=== PATIENT | female | born 1955 | race Two or more races ===

== ENCOUNTER 2018-02-17 01:26 | Inpatient (IN) | payer BC ==
[~2018-02-17] VITALS: Ht 167.6 cm; Wt 68.0 kg
--- NOTE | 2018-02-17 01:38 | NUR ---
Dr. Cui at bedside for MSE.
[2018-02-17] MEDS ORDERED: OXYCODONE/APAP 5-325 MG TABLET PO ONE ×2 (02:00→05:00)
--- NOTE | 2018-02-17 02:00 | NUR ---
Patient comes into the ER s/o fall and roll x 14 stairs after developing weakness to her LLE. Incident occured 1 hour FOOD TASTER. Patient states she has history of sciatica. Patient endorses a similar incident occuring yesterday @ 2100. Patient is not on blood thinners, No LOC occured during the episode of fall. Arrival Time: 0125 MD at bedside: 014 Code Stroke Activation: 0144 @0144 Initial HINSS: 0 , Swallow Screen cleared, no neuro deficits upon arrival to ER. Nursing Coin Dealer: [id number] Art Director Arrival: 0151 EKG completion: [address] gurney accompanied by primary RN/Transporter : 0200 Per ER MD, no need to contact tele neurology. Patient last known well time was 1 hour FOOD TASTER (0025), Labs drawn by vocal artist @ 0159.
--- NOTE | 2018-02-17 02:24 | NUR ---
ER MD on phone with Radiology MD , Code Stroke cleared at this time. No acute stroke is noted per Radiology MD.
[2018-02-17 02:35] LABS: BILIRUBIN,DIRECT 0.1 mg/dL (0.0-0.2); BILIRUBIN,TOTAL 0.2 mg/dL (0.2-1.0); CREATININE 1.3 mg/dL (0.6-1.3); POTASSIUM 3.4 mmol/L (3.5-5.1)
--- NOTE | 2018-02-17 02:39 | NUR ---
Patients CT completed @ 0220. Patient remained in imaging for completion of Xrays.Tolerated well by the patient.
[2018-02-17] MEDS ORDERED: ASPIRIN 81 MG TAB.CHEW PO ONE (02:45)
--- NOTE | 2018-02-17 02:45 | NUR ---
Pt in bed, tolerated PO well, no acute signs of distress.
[2018-02-17] MEDS ORDERED: OXYCODONE/APAP 5-325 MG TABLET ONE ×2 (02:46→04:53)
[2018-02-17] MEDS ORDERED: ASPIRIN 81 MG TAB.CHEW ONE (02:47)
[2018-02-17 03:19] LABS: BASOPHILS # (AUTO) 0.1 K/uL (0.0-8.0); BASOPHILS % (AUTO) 0.5 % (0.0-2.0); EOSINOPHILS # (AUTO) 0.2 K/uL (0.0-0.7); HEMATOCRIT 38.5 % (31.2-41.9); HEMOGLOBIN 13.3 g/dL (10.9-14.3); LYMPHOCYTES # (AUTO) 0.9 K/uL (20.0-40.0); LYMPHOCYTES % (AUTO) 8.1 % (20.5-51.5); MEAN CORPUSCULAR HEMOGLOBIN 30.8 uug (24.7-32.8); MEAN CORPUSCULAR HGB CONC 35 g/dL (32.3-35.6); MEAN CORPUSCULAR VOLUME 89.1 fL (75.5-95.3); MONOCYTES # (AUTO) 0.5 K/uL (2.0-10.0); MONOCYTES % (AUTO) 5.1 % (0.0-11.0); NEUTROPHILS # (AUTO) 8.9 K/uL (1.8-8.9); NEUTROPHILS % (AUTO) 84.3 % (38.5-71.5); PLATELET COUNT (AUTO) 230 K/uL (179-408); RED BLOOD CELL COUNT(AUTO) 4.32 MIL/uL (3.63-4.92); WHITE BLOOD COUNT (AUTO) 10.5 K/uL (3.8-11.8)
--- NOTE | 2018-02-17 03:37 | NUR ---
PAGED EPIC FOR PANEL CALL - AWAITING CALL BACK, ATTEMPT 1.
--- NOTE | 2018-02-17 04:29 | NUR ---
PAGED EPIC FOR PANEL CALL. AWAITING CALL-BACK FROM DR. DIAZ AND/OR HILARIO JACKSON DNP. 3RD ATTEMPT.
--- NOTE | 2018-02-17 04:49 | NUR ---
Report given to Rhona FLOREZ on Telemetry . Pt. admitted to telemetry , under care of Dr. Ram. Dx: TIA Belongs List completed
[2018-02-17 05:10] VITALS: BP 111/56
[2018-02-17] MEDS ORDERED: LEVO75TA7 PO (05:49)
[2018-02-17] MEDS ORDERED: OLME1TAB50 PO (06:33)
[2018-02-17] MEDS ORDERED: LANS30CA54 PO (06:33)
[2018-02-17] MEDS ORDERED: POTASSIUM CHLORIDE 20 MEQ in IV 1/2NS 1000 ML 1,000 ML IV PRN (06:45)
[2018-02-17] MEDS ORDERED: ACETAMINOPHEN 325 MG TABLET PO PRN (06:45)
[2018-02-17] MEDS ORDERED: ZOLPIDEM 5 MG TABLET PO PRN (06:45)
[2018-02-17] MEDS ORDERED: ONDANSETRON 4 MG/2 ML VIAL IV PRN (06:45)
[2018-02-17] MEDS: PANTOPRAZOLE SODIUM 40 MG TABLET.DR PO SCH (07:15)
--- NOTE | 2018-02-17 07:19 | NUR ---
PATIENT ADMITTED FOR LEFT LEG WEAKNESS, S/P FALL. SHES AAOX4 DENIES PAIN OR ANY DISTRESS AT PRESENT. SAFETY MEASURES IN PLACE, CALL LIGHT LEFT WITHIN PATIENT'S REACH
[2018-02-17] MEDS ORDERED: LEVOTHYROXINE SODIUM 75 MCG TABLET PO SCH (07:30)
[2018-02-17] MEDS: ASPIRIN EC 81 MG TABLET.DR PO SCH (08:56)
[2018-02-17] MEDS ORDERED: OLME1TAB52 PO (08:57)
[2018-02-17] MEDS ORDERED: MONT10TA25 PO (08:57)
[2018-02-17] MEDS ORDERED: zyrtec (08:57)
[2018-02-17] MEDS ORDERED: LEVO88TA2 PO (08:57)
[2018-02-17] MEDS ORDERED: TOPI100T38 PO (08:57)
[2018-02-17] MEDS ORDERED: POTA20TA83 PO (08:57)
[2018-02-17] MEDS ORDERED: SIMV20TA6 PO (08:57)
[2018-02-17] MEDS ORDERED: POTASSIUM CHLORIDE 10 MEQ TAB.PRT.SR PO ONE (09:15)
[2018-02-17] MEDS: IV NS 1000 ML 1,000 ML IV PRN ×2 (10:04→19:57)
[2018-02-17] MEDS: HYDROCODONE/APAP 5-325MG TABLET PO PRN ×2 (10:36→19:09)
[2018-02-17] MEDS ORDERED: MISCELLANEOUS MED XX PRN (11:00)
[2018-02-17 11:23] VITALS: BP 118/66
[2018-02-17 11:43] LABS: *BILIRUBIN,URIN NEGATIVE (NEGATIVE); *BLOOD, URINE NEGATIVE (NEGATIVE); *CLARITY,URINE CLEAR (CLEAR); *COLOR,URINE YELLOW (YELLOW); *KETONES,URINE NEGATIVE (NEGATIVE); *PROTEIN,URINE NEGATIVE (NEGATIVE); *UROBILINOGEN,URINE 0.2 E.U./dl (NORMAL); LEUKOCYTE ESTERASE ,URINE NEGATIVE (NEGATIVE); NITRITE, URINE NEGATIVE (NEGATIVE); UGLUCOSE NEGATIVE (NEGATIVE)
[2018-02-17 11:48] LABS: RBC,URINE 0-3 /HPF (0-3)
[2018-02-17 11:49] LABS: BACTERIA,URINE NONE SEEN /HPF (NONE SEEN)
[2018-02-17 11:50] LABS: MUCUS,URINE FEW /LPF (0-FEW); SQUAMOUS EPITHELIAL CELL,UR FEW /HPF (NONE SEEN); TRANSITIONAL EPI CELLS,URINE FEW /LPF (NONE SEEN)
[2018-02-17 15:15] VITALS: BP 112/66
[2018-02-17] MEDS ORDERED: PRAV10TA40 PO (15:25)
--- NOTE | 2018-02-17 19:20 | NUR ---
RECEIVED PT LYING IN BED. HAS NO SIGNS OF ACUTE DISTRESS. HAS NO COMPLAINTS OF PAIN OR SOB. IV LINE ON THE RIGHT AC, INTACT AND PATENT. SAFETY AND COMFORT MEASURES INITIATED. CALL LIGHT WITHIN REACH. WILL CONTINUE TO MONITOR.
[2018-02-17 20:04] VITALS: BP 133/69
[2018-02-17] MEDS ORDERED: ATORVASTATIN 40 MG TABLET PO SCH (21:00)
[2018-02-17] MEDS ORDERED: SIMVASTATIN 20 MG TABLET PO SCH (21:00)
[2018-02-17] MEDS ORDERED: ENOXAPARIN SODIUM 40 MG/0.4 ML DISP.SYRIN SQ SCH (21:00)
[2018-02-17] MEDS ORDERED: EZETIMIBE 10 MG TABLET PO SCH (21:00)
[2018-02-17] MEDS ORDERED: ATORVASTATIN 10 MG TABLET PO SCH (21:00)
[2018-02-17] MEDS ORDERED: DOCUSATE SODIUM 100 MG CAPSULE PO SCH (21:00)
[2018-02-17] MEDS ORDERED: TOPIRAMATE 100 MG TABLET PO SCH (21:00)
[2018-02-18 00:21] VITALS: BP 115/68
[2018-02-18 04:49] VITALS: BP 121/64
[2018-02-18] MEDS: PANTOPRAZOLE SODIUM 40 MG TABLET.DR PO SCH (06:01)
[2018-02-18] MEDS: HYDROCODONE/APAP 5-325MG TABLET PO PRN ×2 (06:02→14:10)
[2018-02-18] MEDS: IV NS 1000 ML 1,000 ML IV PRN (06:14)
--- NOTE | 2018-02-18 06:25 | NUR ---
PT SLEPT THROUGHOUT THE SHIFT. PT SHOWS NO SIGNS OF ACUTE DISTRESS. PT AFEBRILE. VITAL SIGNS WITHIN NORMAL LIMIT. NORCO GIVEN FOR THE PT FOR PAIN. PRESCRIBED MEDICATION GIVEN AND PT TOLERATED IT WELL. SAFETY AND COMFORT PROVIDED. WILL ENDORSE ACCORDINGLY TO INCOMING NURSE FOR CONTINUITY OF CARE.
[2018-02-18 06:39] LABS: BILIRUBIN,TOTAL 0.4 mg/dL (0.2-1.0); MAGNESIUM 2.1 mg/dL (1.8-2.4); PHOSPHOROUS 2.4 mg/dL (2.5-4.9); POTASSIUM 3.4 mmol/L (3.5-5.1); TOTAL PROTEIN, SERUM 6.4 g/dL (6.4-8.2)
[2018-02-18] MEDS ORDERED: LEVOTHYROXINE SODIUM 88 MCG TABLET PO SCH (07:00)
[2018-02-18 07:05] LABS: EOSINOPHILS # (AUTO) 0.3 K/uL (0.0-0.7); MONOCYTES # (AUTO) 0.4 K/uL (2.0-10.0); RED BLOOD CELL COUNT(AUTO) 3.77 MIL/uL (3.63-4.92)
[2018-02-18 07:18] LABS: BASOPHILS % (AUTO) 0.8 % (0.0-2.0); EOSINOPHILS % (AUTO) 4.9 % (0.0-7.0); LYMPHOCYTES # (AUTO) 1.4 K/uL (20.0-40.0); LYMPHOCYTES % (AUTO) 23.8 % (20.5-51.5); MEAN CORPUSCULAR HEMOGLOBIN 30.6 uug (24.7-32.8); MEAN CORPUSCULAR HGB CONC 34 g/dL (32.3-35.6); MEAN CORPUSCULAR VOLUME 89.8 fL (75.5-95.3); MONOCYTES % (AUTO) 7.2 % (0.0-11.0); NEUTROPHILS # (AUTO) 3.6 K/uL (1.8-8.9); NEUTROPHILS % (AUTO) 63.3 % (38.5-71.5); PLATELET COUNT (AUTO) 217 K/uL (179-408)
[2018-02-18 07:21] LABS: HEMATOCRIT 33.9 % (31.2-41.9); HEMOGLOBIN 11.5 g/dL (10.9-14.3); WHITE BLOOD COUNT (AUTO) 5.7 K/uL (3.8-11.8)
--- NOTE | 2018-02-18 07:35 | NUR ---
Received patient awake in bed, not any form of distress. Alert and oriented x 4, ambulates with assist. With IV access at right antecubital vein to normal saline infusing at 100ml/hr. Per evening or night nurse supervisor, patient complains of back pain, monitored for recurrence of back pain. Bed in low position, side rails up x 2, call light within reach. Will continue to monitor.
--- NOTE | 2018-02-18 08:30 | NUR ---
Patient refusing to take Losartan and Hydrochlorothiazide medication, states these medications do not help her and she wants to continue the blood pressure medication she has been taking at home which her is bringing. Discussed with Dr. Arias who said patient can continue taking blood pressure medication she was taking at home. Home medication - Benicar HCT taken to pharmacy and ordered.
[2018-02-18] MEDS: HYDROCHLOROTHIAZIDE 12.5 MG CAPSULE PO SCH ×2 (08:44→08:50)
[2018-02-18] MEDS: ASPIRIN EC 81 MG TABLET.DR PO SCH (08:44)
[2018-02-18] MEDS: LOSARTAN POTASSIUM 50 MG TABLET PO SCH ×2 (08:44→08:50)
[2018-02-18] MEDS ORDERED: POTASSIUM CHLORIDE 20 MEQ TAB.PRT.SR PO SCH ×2 (09:00)
[2018-02-18] MEDS ORDERED: MONTELUKAST SODIUM 10 MG TABLET PO SCH (09:00)
--- NOTE | 2018-02-18 09:00 | NUR ---
Patient requesting for a pain patch, discussed with Dr. Arias. per MD we can order Lidocaine patch for patient's back pain - noted and ordered.
[2018-02-18] MEDS ORDERED: LIDOCAINE 5% PATCH TD SCH (09:30)
[2018-02-18] MEDS ORDERED: PATIENT MAY USE OWN MED- MD OK PO SCH (10:15)
[2018-02-18] MEDS ORDERED: HYDROCHLOROTHIAZIDE PO SCH (10:45)
[2018-02-18] MEDS ORDERED: OLMESARTAN PO SCH (10:45)
[2018-02-18] MEDS ORDERED: [UNRECOGNIZED DRUG - OTHER] PO SCH (10:45)
[2018-02-18 12:05] VITALS: BP 133/76
--- NOTE | 2018-02-18 14:00 | NUR ---
Patient and insisting to go home today if neurologist is not gonna see the patient. Called Dr. Arias to relay patient request, per MD he is not gonna clear her to be discharged until seen by neurologist and that if patient insists to go home it will me against medical advice.
--- NOTE | 2018-02-18 15:00 | NUR ---
Noted per Dr. Arias patient will be officially discharged today and patient will follow up with PCP and neurologist on outpatient basis, with this patient and agreed. Discharge paperwork will be processed.
[2018-02-18] MEDS ORDERED: NEUTRA PHOS PACKET PO ONE (15:15)
[2018-02-18 16:07] VITALS: BP 142/70
--- NOTE | 2018-02-18 16:25 | NUR ---
Patient discharged to home, accompanied to hospital lobby via wheelchair by EMILY Byrne. Patient to go home via private car accompanied by , Nawaf.
== END 2018-02-18 16:25 | disposition home or self-care (01) | DRG 551 ==
LOC: ER 01:28 → TELE 04:53
PROVIDERS: ADMIT Internal Medicine; ATTEND Family Medicine
DX: M51.17 Intervertebral disc disorders with radiculopathy, lumbosacral region (principal); N17.0 Acute kidney failure with tubular necrosis; E87.1 Hypo-osmolality and hyponatremia; M62.81 Muscle weakness (generalized); M47.26 Other spondylosis with radiculopathy, lumbar region; M46.97 Unspecified inflammatory spondylopathy, lumbosacral region; E78.5 Hyperlipidemia, unspecified; M25.511 Pain in right shoulder; W10.9XXA Fall (on) (from) unspecified stairs and steps, initial encounter; Z91.81 History of falling; Y93.89 Activity, other specified; Y92.018 Other place in single-family (private) house as the place of occurrence of the external cause; K21.9 Gastro-esophageal reflux disease without esophagitis; Z80.0 Family history of malignant neoplasm of digestive organs; Z82.49 Family history of ischemic heart disease and other diseases of the circulatory system; E87.6 Hypokalemia; E86.1 Hypovolemia; E03.9 Hypothyroidism, unspecified; I10 Essential (primary) hypertension; R73.9 Hyperglycemia, unspecified; M48.02 Spinal stenosis, cervical region
CPT/HCPCS: 36415; 70030-TC; 70450; 71045; 72100; 73030; 83735; 84100; 84443; 85025; 85730; 87086; 93005; 93307; 93880; A4663; G0378; J1650; J3480; J3490; J7030